=== PATIENT | male | born 1945 | race Two or more races ===

== ENCOUNTER → 2024-10-26 14:29 | Outpatient (REF) | payer MEDICARE, OTHER, SELFPAY | LOC: DHSLP 14:29 | PROVIDERS: ATTENDING PHYSICIAN Internal Medicine Cardiovascular Disease; FAMILY PHYSICIAN Family Medicine | DX: G47.30 Sleep apnea, unspecified (principal); R06.83 Snoring; G47.19 Other hypersomnia; I10 Essential (primary) hypertension | CPT/HCPCS: 95806 ==